=== PATIENT | male | born 1970 | race Caucasian/White ===

== ENCOUNTER 2016-12-23 10:16 | Outpatient (CLI) | payer OTHER | END 2016-12-23 10:17 | disposition home or self-care (01) | DX: I10 Essential (primary) hypertension (principal) ==

== ENCOUNTER 2017-04-08 21:41 | Emergency (ER) | payer OTHER ==
[2017-04-08 21:49] VITALS: BP 141/94
--- NOTE | 2017-04-08 21:52 | ED Physician Documentation ---
PD HPI HEENT - Stated complaint Stated Complaint: SEVERE JAW PAIN - Chief complaint Chief Complaint: General - History obtained from History obtained from: Patient - History of Present Illness Timing - onset: How many days ago (few) Timing - duration: Days (few) Timing - details: Gradual onset, Still present Location: Tooth (left upper teeth and maxillary area.) Worsens: Temperatures, Other (chewing) Associated symptoms: No: Fever, Congestion, Swollen nodes, Facial swelling Similar symptoms before: Diagnosis (has had dental pain commonly due to marked decay of teeth, but now with significant pain for past few days. Has had left lower teeth out 5 years ago, but had not had money to continue with the dental work.) Recently seen: Not recently seen Review of Systems Constitutional: denies: Fever, Chills Throat: reports: Dental pain / toothache. denies: Sore throat Respiratory: denies: Dyspnea, Cough GI: denies: Nausea, Vomiting, Diarrhea Skin: denies: Rash, Lesions PD PAST MEDICAL HISTORY - Past Medical History GI: Pancreatitis HEENT: None Psych: Depression - Past Surgical History Past Surgical History: Yes - Present Medications Home Medications: Ambulatory Orders Medication Instructions Recorded Confirmed Atorvastatin [Lipitor] 20 mg PO BID 04/08/17 04/08/17 Chlorhexidine Gluconate [Peridex] 5 ml MM BID #118 ml 04/08/17 Citalopram [CeleXA] 10 mg PO DAILY 04/08/17 04/08/17 Clindamycin HCl [Cleocin HCl] 300 mg PO TID #20 capsule 04/08/17 Estradiol 2 mg PO BID 04/08/17 04/08/17 Hydrocodone/Acetaminophen [[place] 1 each PO Q6H PRN #20 tablet 04/08/17 5-325 Tablet] Spironolactone 100 mg PO DAILY 04/08/17 04/08/17 buPROPion [Wellbutrin Sr] 150 mg PO BID 04/08/17 04/08/17 - Allergies Allergies/Adverse Reactions: Allergies Allergy/AdvReac Type Severity Reaction Status Date / Time No Known Drug Allergies Allergy Verified 04/08/17 21:51 - Social History Does the pt smoke?: No Smoking Status: Never smoker Does the pt drink ETOH?: No Does the pt have substance abuse?: No - Immunizations Immunizations are current?: Yes - POLST Patient has POLST: No PD ED PE NORMAL - Vitals Vital signs reviewed: Yes - General General: Alert and oriented X 3, No acute distress, Well developed/nourished - HEENT HEENT: Moist mucous membranes, Pharynx benign. No: Dentition benign (severe dental decay diffusely. Prior left lower teeth missing with healed gums and no signs infection. Gingival redness and tenderness left upper and mild local gum swelling buccal side. No fluctuance. ) - Neck Neck: Supple, no meningeal sign, No adenopathy - Cardiac Cardiac: RRR, No murmur - Respiratory Respiratory: Clear bilaterally Results - Vitals Vitals: Vital Signs - 24 hr 04/08/17 21:45 Temperature 36.2 C L Heart Rate 82 Respiratory 18 Rate Blood Pressure 141/94 H O2 Saturation 99 Oxygen O2 Source Room air PD MEDICAL DECISION MAKING - ED course Complexity details: considered differential, d/w patient Departure - Departure Disposition: 01 Home, Self Care Clinical Impression: Pain, dental, Infected dental caries Condition: Stable Record reviewed to determine appropriate education?: Yes Instructions: ED Tooth Pain Prescriptions: Clindamycin HCl [Cleocin HCl] 300 mg PO TID #20 capsule Hydrocodone/Acetaminophen [[place] 5-325 Tablet] 1 each PO Q6H PRN #20 tablet PRN Reason: Pain Chlorhexidine Gluconate [Peridex] 5 ml MM BID #118 ml Comments: Follow up for definitive dental care. Couple of options are [facility] [phone] and [facility] [phone] for information and making appts. For now, presume the pain is from inflammation and infection. Advil 400-600 mg 2-3 times daily for inflammation. Add Tylenol or Hydrocodone for pains. Chlorhexidine antiseptic rinse orally twice daily. Clindamycin as directed for infection. Recheck if not improving over the next few days. Discharge Date/Time: 04/08/17 22:13
[2017-04-08] MEDS ORDERED: HYDROcod/ACET 5/325 Prepack 6 PO ONE ×2 (22:01→22:05)
[2017-04-08] MEDS ORDERED: CLINDAMYCIN 150 MG CAPSULE PO STA (22:01)
[2017-04-08] MEDS ORDERED: HYDROcod/ACETAM 5/325 MG TABLET PO STA (22:01)
[2017-04-08] MEDS ORDERED: CLINDAMYCIN 150 MG CAPSULE PO ONE (22:05)
[2017-04-08] MEDS ORDERED: HYDROcod/ACETAM 5/325 MG TABLET ONE (22:05)
== END 2017-04-08 22:13 | disposition home or self-care (01) ==
LOC: ED 21:41
DX: K08.89 Other specified disorders of teeth and supporting structures (principal); K04.7 Periapical abscess without sinus
CPT/HCPCS: 99283; A9270